=== PATIENT | male | born 1955 | race Caucasian/White ===

== ENCOUNTER 2019-04-16 15:34 | Emergency (ER) | payer BC, SELFPAY ==
[2019-04-16 17:12] VITALS: BP 158/103; PULSE 65; RESP 18; TEMP 36.6; O2SAT 98; BMI 27.1
[2019-04-16 18:05] LABS: Basophils # 0.1 10^3/uL (0.0-0.1); Basophils % 0.3 %; Eosinophils % 0.1 %; Hematocrit 46.2 % (42.0-52.0); Hemoglobin 14.7 g/dL (11.7-16.6); Lymphocytes # 0.9 10^3/uL (0.8-4.8); Lymphocytes % 6.2 %; Mean Corpuscular HGB Conc 31.8 g/dL (30.0-36.0); Mean Corpuscular Hemoglobin 27.2 pg (28.0-34.0); Mean Corpuscular Volume 85.6 fL (80-94); Mean Platelet Volume 9.4 fL (7.4-10.4); Monocytes # 0.8 10^3/uL (0.2-0.9); Monocytes % 5.2 %; Neutrophils # 13.1 10^3/uL (1.8-7.7); Neutrophils % 87.9 %; Nucleated Red Blood Cells % 0 %; Platelet Count 421 10^3/cmm (130-400); Red Cell Distribution Width 12.3 % (12.1-15.1); White Blood Count 14.9 10^3/uL (4.0-10.0)
--- NOTE | 2019-04-16 18:08 | W.ED.ABDPA2 ---
Documented by User: JULIUS Hodgson 04/17/19 03:01 HPI - Abdominal Pain General: Chief Complaint: Abdominal Pain Stated Complaint: Abd pain Time Seen by Provider: 04/16/19 17:53 History of Present Illness: HPI narrative: Patient is a 63-year-old male comes into the ED with left flank pain. The pain started today and he had trouble urinating as well. He has vomited 4 times from the pain. He states the pain started up higher on the left side of his back and has progressed down his left flank. He is taken hydrocodone for pain and said that that did not help. Denies any Fevers, chest pain, shortness of breath, other abdominal pain, diarrhea, constipation, blood in the stool or upper respiratory symptoms. Review of Systems General: Reports: 10 or more systems reviewed and unremarkable except in HPI and below PFSH ED PFSH: Statuses (acute, chronic, etc) shown below reflect problem list status as previously entered and may not be historically accurate Social History Smoking and tobacco status: never smoked Physical Exam Narrative: EXAM NARRATIVE: Upon entering the room the patient was pacing back and forth and uncomfortable because of the flank pain on the left side. Const: COMMON NORMALS: oriented x3 HENMT: COMMON NORMALS: normocephalic HEAD & SCALP: normocephalic MOUTH: oral and palatal mucosa normal THROAT: posterior oropharynx normal and uvula midline Neck/C-Spine: COMMON NORMALS: supple GENERAL: Yes normal visual inspection Resp: COMMON NORMALS: normal respiratory effort, no retractions, no use of accessory muscles and clear to auscultation bilaterally AUSCULTATION: clear to auscultation bilaterally Cardio: COMMON NORMALS: regular rate, regular rhythm, S1 normal heart sound, S2 normal heart sound, no gallops, no clicks, no murmurs and peripheral pulses 2+ throughout RATE: regular rate RHYTHM: regular rhythm HEART SOUNDS: S1 normal and S2 normal PERIPHERAL PULSES: pulses 2+ throughout GI: COMMON NORMALS: normal to inspection, nondistended, normoactive bowel sounds, soft to palpation, non-tender and no masses PALPATION: Yes soft : BLADDER/KIDNEY EXAM: Yes CVA tenderness (Mild) Back/Pelvis: GENERAL BACK: Yes CVA tenderness (Mild) CVA tenderness: left Neuro: COMMON NORMALS: oriented x3 GAIT: Yes normal gait Skin: COMMON NORMALS: no rashes or lesions noted GENERAL SKIN EXAM: no rashes or lesions noted Course Vital Signs: Vital signs: Vital Signs Temperature 97.8 F 04/16/19 17:12 Pulse Rate 98 04/16/19 20:40 Respiratory Rate 18 04/16/19 20:40 Blood Pressure 136/74 04/16/19 20:40 Pulse Oximetry 98 04/16/19 20:40 MDM - Abdominal Pain Lab Data: Labs: Lab Results 04/16/19 04/16/19 04/16/19 Range/Units 17:35 17:40 17:40 WBC 14.9 H (4.0-10.0) 10^3/ uL RBC 5.40 H (4.1-5.3) 10^6/u L Hgb 14.7 (11.7-16.6) g/dL Hct 46.2 (42.0-52.0) % MCV 85.6 (80-94) fL MCH 27.2 L (28.0-34.0) pg MCHC 31.8 (30.0-36.0) g/dL RDW 12.3 (12.1-15.1) % Plt Count 421 H (130-400) 10^3/c mm MPV 9.4 (7.4-10.4) fL Neut % (Auto) 87.9 % Lymph % (Auto) 6.2 % Morrill % (Auto) 5.2 % Eos % (Auto) 0.1 % Baso % (Auto) 0.3 % Neut # (Auto) 13.1 H (1.8-7.7) 10^3/u L Lymph # (Auto) 0.9 (0.8-4.8) 10^3/u L Morrill # (Auto) 0.8 (0.2-0.9) 10^3/u L Eos # (Auto) 0.0 (0.0-0.8) 10^3/u L Baso # (Auto) 0.1 (0.0-0.1) 10^3/u L Nucleated RBC % (a uto) 0 % Nucleated RBCs # 0.0 /100WBC PT 13.60 H (10.5-13.3) SECO NDS INR 1.01 (0.8-1.2) APTT 29.4 (23.9-36.7) SECO NDS Sodium (136-145) mmol/L Potassium (3.5-5.1) mmol/L Chloride (98-107) mmol/L Carbon Dioxide (22-29) mmol/L Anion Gap (5-19) BUN (8-23) mg/dL Creatinine (0.7-1.2) mg/dL GFR Calculation (90-130) mL/min Glucose (74-106) mg/dL Calcium (8.8-10.2) mg/Dl Total Bilirubin (0.15-1.2) mg/dL AST (0-40) U/L ALT (0-41) U/L Alkaline Phosphata se (40-130) IU/L Total Protein (6.6-8.7) g/dL Albumin (3.5-5.2) g/dL Globulin (1.3-4.6) g/dL Urine Color Yellow (Yellow) Urine Appearance Clear (CLEAR) Urine pH 5 (5-7) Ur Specific Gravit y 1.025 (1.005-1.030) Urine Protein Neg (Negative) Urine Glucose (UA) Norm (Normal) Urine Ketones Negative (Negative) Urine Occult Blood 2+ H (Negative) Urine Nitrate Negative (Negative) Urine Bilirubin Neg (NEGATIVE) Urine Urobilinogen Norm (Negative) mg/dL Ur Leukocyte Tracey ase Negative (Negative) Urine RBC 15-25 H (0-2) /hpf Urine WBC None (0-5) /hpf Ur Squamous Epith Cells None (0-5) Urine Bacteria 1+ H (NONE) Urine Mucus 1+ 01/15/20 Range/Units 17:40 WBC (4.0-10.0) 10^3/ uL RBC (4.1-5.3) 10^6/u L Hgb (11.7-16.6) g/dL Hct (42.0-52.0) % MCV (80-94) fL MCH (28.0-34.0) pg MCHC (30.0-36.0) g/dL RDW (12.1-15.1) % Plt Count (130-400) 10^3/c mm MPV (7.4-10.4) fL Neut % (Auto) % Lymph % (Auto) % Morrill % (Auto) % Eos % (Auto) % Baso % (Auto) % Neut # (Auto) (1.8-7.7) 10^3/u L Lymph # (Auto) (0.8-4.8) 10^3/u L Morrill # (Auto) (0.2-0.9) 10^3/u L Eos # (Auto) (0.0-0.8) 10^3/u L Baso # (Auto) (0.0-0.1) 10^3/u L Nucleated RBC % (a uto) % Nucleated RBCs # /100WBC PT (10.5-13.3) SECO NDS INR (0.8-1.2) APTT (23.9-36.7) SECO NDS Sodium 142 (136-145) mmol/L Potassium 4.2 (3.5-5.1) mmol/L Chloride 104 (98-107) mmol/L Carbon Dioxide 26 (22-29) mmol/L Anion Gap 16.2 (5-19) BUN 20 (8-23) mg/dL Creatinine 1.7 H (0.7-1.2) mg/dL GFR Calculation 41.0 L (90-130) mL/min Glucose 131 H (74-106) mg/dL Calcium 10.3 H (8.8-10.2) mg/Dl Total Bilirubin 0.4 (0.15-1.2) mg/dL AST 19 (0-40) U/L ALT 17 (0-41) U/L Alkaline Phosphata se 80 (40-130) IU/L Total Protein 8.0 (6.6-8.7) g/dL Albumin 4.5 (3.5-5.2) g/dL Globulin 3.5 (1.3-4.6) g/dL Urine Color (Yellow) Urine Appearance (CLEAR) Urine pH (5-7) Ur Specific Gravit y (1.005-1.030) Urine Protein (Negative) Urine Glucose (UA) (Normal) Urine Ketones (Negative) Urine Occult Blood (Negative) Urine Nitrate (Negative) Urine Bilirubin (NEGATIVE) Urine Urobilinogen (Negative) mg/dL Ur Leukocyte Tracey ase (Negative) Urine RBC (0-2) /hpf Urine WBC (0-5) /hpf Ur Squamous Epith Cells (0-5) Urine Bacteria (NONE) Urine Mucus Imaging Data ^: CT Abd/Pel: Attestation: I personally reviewed and interpreted this imaging study as follows: Radiologist's impression: [address] [place] [address] CT Scan Report Signed Patient: Carlos Willoughby Unit #: [id number] : 1955 Age/Sex: 63 / M ADM Date: 04/16/19 Loc: ER Room/Bed: Attending Dr: Ordering Provider/Ordering MD: Meir Argueta Date of Service: 04/16/19 Procedure(s): CT kidney stone 97459 Accession Number(s): [id number] Report Number: [id number] PROCEDURE INFORMATION: Exam: CT Abdomen And Pelvis Without Contrast Exam date and time: 04/16/2019 6:14 PM Age: 63 years old Clinical indication: Abdominal pain; Prior surgery; Surgery type: Colon resection; Additional info: Left flank pain TECHNIQUE: Imaging protocol: Computed tomography of the abdomen and pelvis without contrast. Total DLP: 1383.8 mGy-cm Radiation optimization: All CT scans at this facility use at least one of these dose optimization techniques: automated exposure control; mA and/or kV adjustment per patient size (includes targeted exams where dose is matched to clinical indication); or iterative reconstruction. COMPARISON: CT abdomen pelvis wo con [id number] 03/11/2018 11:32 AM FINDINGS: Lungs: Calcified granulomas are noted in the lung bases. Mediastinum: A small hiatal hernia is present. Liver: Unremarkable.No mass. Gallbladder and bile ducts: Normal. No calcified stones. No ductal dilation. Pancreas: Normal. No ductal dilation. Spleen: Normal. No splenomegaly. Adrenals: Normal. No mass. Kidneys and ureters: There is moderate left hydronephrosis. There is left perinephric fat stranding. There is dilatation of the left ureter which can be followed to a 3 mm calculus distal left ureter image 155. The right kidney is normal. There is punctate nonobstructive left nephrolithiasis. Stomach and bowel: Postoperative changes in the distal colon are noted. There is mild wall thickening in the descending and sigmoid colon concerning for mild colitis. Appendix: A normal appendix is identified. Intraperitoneal space: There is a focus of extraluminal inflammation with central fat density in the left lower quadrant image 123. Vasculature: The aorta demonstrates mild atherosclerotic calcification. Lymph nodes: Unremarkable.No enlarged lymph nodes. Bladder: There is nonspecific bladder wall thickening. This may be related to incomplete distention. Reproductive: The prostate demonstrates nonspecific parenchymal calcifications. Bones/joints: Unremarkable. No acute fracture. Soft tissues: Small bilateral fat filled inguinal hernias are noted. There is a fat-containing umbilical hernia. CT/CT kidney stone 26735 IMPRESSION: 1. Moderate left hydronephrosis with a 3 mm calculus distal left ureter. 2. Postoperative changes in the distal colon are noted. There is mild wall thickening in the descending and sigmoid colon concerning for mild colitis. 3. Epiploic appendigitis of the left lower quadrant without evidence of colonic perforation or abscess. Radiation Dose CTDIVOL = (mGy): DLP = 1383.8 (mGy-cm) Dictated By: Martha Sharma Signed By: Martha Sharma Signed Date/Time: 04/16/191853 DD/ 51 Discharge Plan Discharge Patient Disposition: Home, Self-Care Clinical Impression: Kidney stone on left side Condition: Stable Prescriptions: New Flomax 0.4 mg capsule 0.4 mg PO DAILY Qty: 10 RF: 0 No Action meloxicam 15 mg Tablet 15 mg PO DAILY RF: 0 lisinopril 20 mg tablet 20 mg PO DAILY RF: 0 hydrocodone-acetaminophen 7.5-325 mg tablet 1 tab PO Q4H PRN (Reason: Pain) RF: 0 fluticasone propionate 50 mcg/actuation spray,suspension 1 spray INTRANASAL DAILY RF: 0 Discharge Orders: Discharge Order (Routine); Ordered 04/16/19 Ordered By: Meir Argueta Referrals: Yaneth Khoury, [employer] [Primary Care Provider] - Discharge Diet: Regular Discharge Activity: Increase activity as tolerated Activity Restrictions/Additional Instructions: I'm putting you in for urology referral. The [facility] urology office should be contacting you in the next couple days for an appointment. Strain your urine to catch stone and bring it to urology appointment. Drink plenty of fluids and take the prescribed tamsulosin daily. Take Aleve or ibuprofen as needed for pain. Discharge Date/Time: 04/16/19 20:40 Coding Level of Care Code ED Toe Puller for Krystag Fwd Documented by User: Ashley May 04/19/19 19:22 HPI - Abdominal Pain General: Chief Complaint: Abdominal Pain Stated Complaint: Abd pain Time Seen by Provider: 04/16/19 17:53 PFSH ED PFSH: Statuses (acute, chronic, etc) shown below reflect problem list status as previously entered and may not be historically accurate Social History Smoking and tobacco status: never smoked Course Vital Signs: Vital signs: Vital Signs Temperature 97.8 F 04/16/19 17:12 Pulse Rate 98 04/16/19 20:40 Respiratory Rate 18 04/16/19 20:40 Blood Pressure 136/74 04/16/19 20:40 Pulse Oximetry 98 04/16/19 20:40 MDM - Abdominal Pain MDM Narrative: Medical decision making narrative: Addendum 04/19/19 -I was reviewing this patient's chart and had concerns about the possible colitis and his elevated white count and creatinine. I have contacted him by phone and he states he is feeling no better but he is also not feeling any worse. I have encouraged him and he agrees to return to the ER for recheck. Lab Data: Labs: Lab Results 04/16/19 04/16/19 04/16/19 Range/Units 17:35 17:40 17:40 WBC 14.9 H (4.0-10.0) 10^3/ uL RBC 5.40 H (4.1-5.3) 10^6/u L Hgb 14.7 (11.7-16.6) g/dL Hct 46.2 (42.0-52.0) % MCV 85.6 (80-94) fL MCH 27.2 L (28.0-34.0) pg MCHC 31.8 (30.0-36.0) g/dL RDW 12.3 (12.1-15.1) % Plt Count 421 H (130-400) 10^3/c mm MPV 9.4 (7.4-10.4) fL Neut % (Auto) 87.9 % Lymph % (Auto) 6.2 % Morrill % (Auto) 5.2 % Eos % (Auto) 0.1 % Baso % (Auto) 0.3 % Neut # (Auto) 13.1 H (1.8-7.7) 10^3/u L Lymph # (Auto) 0.9 (0.8-4.8) 10^3/u L Morrill # (Auto) 0.8 (0.2-0.9) 10^3/u L Eos # (Auto) 0.0 (0.0-0.8) 10^3/u L Baso # (Auto) 0.1 (0.0-0.1) 10^3/u L Nucleated RBC % (a uto) 0 % Nucleated RBCs # 0.0 /100WBC PT 13.60 H (10.5-13.3) SECO NDS INR 1.01 (0.8-1.2) APTT 29.4 (23.9-36.7) SECO NDS Sodium (136-145) mmol/L Potassium (3.5-5.1) mmol/L Chloride (98-107) mmol/L Carbon Dioxide (22-29) mmol/L Anion Gap (5-19) BUN (8-23) mg/dL Creatinine (0.7-1.2) mg/dL GFR Calculation (90-130) mL/min Glucose (74-106) mg/dL Calcium (8.8-10.2) mg/Dl Total Bilirubin (0.15-1.2) mg/dL AST (0-40) U/L ALT (0-41) U/L Alkaline Phosphata se (40-130) IU/L Total Protein (6.6-8.7) g/dL Albumin (3.5-5.2) g/dL Globulin (1.3-4.6) g/dL Urine Color Yellow (Yellow) Urine Appearance Clear (CLEAR) Urine pH 5 (5-7) Ur Specific Gravit y 1.025 (1.005-1.030) Urine Protein Neg (Negative) Urine Glucose (UA) Norm (Normal) Urine Ketones Negative (Negative) Urine Occult Blood 2+ H (Negative) Urine Nitrate Negative (Negative) Urine Bilirubin Neg (NEGATIVE) Urine Urobilinogen Norm (Negative) mg/dL Ur Leukocyte Tracey ase Negative (Negative) Urine RBC 15-25 H (0-2) /hpf Urine WBC None (0-5) /hpf Ur Squamous Epith Cells None (0-5) Urine Bacteria 1+ H (NONE) Urine Mucus 1+ 01/15/20 Range/Units 17:40 WBC (4.0-10.0) 10^3/ uL RBC (4.1-5.3) 10^6/u L Hgb (11.7-16.6) g/dL Hct (42.0-52.0) % MCV (80-94) fL MCH (28.0-34.0) pg MCHC (30.0-36.0) g/dL RDW (12.1-15.1) % Plt Count (130-400) 10^3/c mm MPV (7.4-10.4) fL Neut % (Auto) % Lymph % (Auto) % Morrill % (Auto) % Eos % (Auto) % Baso % (Auto) % Neut # (Auto) (1.8-7.7) 10^3/u L Lymph # (Auto) (0.8-4.8) 10^3/u L Morrill # (Auto) (0.2-0.9) 10^3/u L Eos # (Auto) (0.0-0.8) 10^3/u L Baso # (Auto) (0.0-0.1) 10^3/u L Nucleated RBC % (a uto) % Nucleated RBCs # /100WBC PT (10.5-13.3) SECO NDS INR (0.8-1.2) APTT (23.9-36.7) SECO NDS Sodium 142 (136-145) mmol/L Potassium 4.2 (3.5-5.1) mmol/L Chloride 104 (98-107) mmol/L Carbon Dioxide 26 (22-29) mmol/L Anion Gap 16.2 (5-19) BUN 20 (8-23) mg/dL Creatinine 1.7 H (0.7-1.2) mg/dL GFR Calculation 41.0 L (90-130) mL/min Glucose 131 H (74-106) mg/dL Calcium 10.3 H (8.8-10.2) mg/Dl Total Bilirubin 0.4 (0.15-1.2) mg/dL AST 19 (0-40) U/L ALT 17 (0-41) U/L Alkaline Phosphata se 80 (40-130) IU/L Total Protein 8.0 (6.6-8.7) g/dL Albumin 4.5 (3.5-5.2) g/dL Globulin 3.5 (1.3-4.6) g/dL Urine Color (Yellow) Urine Appearance (CLEAR) Urine pH (5-7) Ur Specific Gravit y (1.005-1.030) Urine Protein (Negative) Urine Glucose (UA) (Normal) Urine Ketones (Negative) Urine Occult Blood (Negative) Urine Nitrate (Negative) Urine Bilirubin (NEGATIVE) Urine Urobilinogen (Negative) mg/dL Ur Leukocyte Tracey ase (Negative) Urine RBC (0-2) /hpf Urine WBC (0-5) /hpf Ur Squamous Epith Cells (0-5) Urine Bacteria (NONE) Urine Mucus Discharge Plan Discharge Patient Disposition: Home, Self-Care Clinical Impression: Kidney stone on left side Condition: Stable Prescriptions: New Flomax 0.4 mg capsule 0.4 mg PO DAILY Qty: 10 RF: 0 No Action meloxicam 15 mg Tablet 15 mg PO DAILY RF: 0 lisinopril 20 mg tablet 20 mg PO DAILY RF: 0 hydrocodone-acetaminophen 7.5-325 mg tablet 1 tab PO Q4H PRN (Reason: Pain) RF: 0 fluticasone propionate 50 mcg/actuation spray,suspension 1 spray INTRANASAL DAILY RF: 0 Discharge Orders: Discharge Order (Routine); Ordered 04/16/19 Ordered By: Meir Arugeta Referrals: Yaneth Khoury, [employer] [Primary Care Provider] - Discharge Diet: Regular Discharge Activity: Increase activity as tolerated Activity Restrictions/Additional Instructions: I'm putting you in for urology referral. The [facility] urology office should be contacting you in the next couple days for an appointment. Strain your urine to catch stone and bring it to urology appointment. Drink plenty of fluids and take the prescribed tamsulosin daily. Take Aleve or ibuprofen as needed for pain. Discharge Date/Time: 04/16/19 20:40 Coding Level of Care Code ED Toe Puller for Jignesh Zhong
[2019-04-16 18:09] LABS: INR 1.01 (0.8-1.2)
[2019-04-16 18:10] LABS: Partial Thromboplastin Time 29.4 SECONDS (23.9-36.7)
[2019-04-16 18:27] LABS: Alanine Aminotransferase 17 U/L (0-41); Albumin Level 4.5 g/dL (3.5-5.2); Alkaline Phosphatase 80 IU/L (40-130); Anion Gap 16.2 (5-19); Aspartate Amino Transferase 19 U/L (0-40); Blood Urea Nitrogen 20 mg/dL (8-23); Calcium 10.3 mg/Dl (8.8-10.2); Carbon Dioxide 26 mmol/L (22-29); Chloride 104 mmol/L (98-107); Globulin 3.5 g/dL (1.3-4.6); Glucose 131 mg/dL (74-106); Potassium 4.2 mmol/L (3.5-5.1); Sodium 142 mmol/L (136-145); Total Bilirubin 0.4 mg/dL (0.15-1.2)
[2019-04-16] MEDS: tamsulosin 0.4 mg Capsule PO (18:29)
[2019-04-16] MEDS: ketorolac 30 mg/mL INJ IVP (18:29)
[2019-04-16] MEDS: sodium chloride 0.9% 1,000 ML 999 ML IV (18:29)
[2019-04-16] MEDS: ondansetron 2 mg/ML SDV 2 mL 4 MG IVP (18:29)
--- NOTE | 2019-04-16 18:32 | PC.NURSE ---
pt transported to CT
[2019-04-16 18:38] LABS: Add Urine Microscopic? YES; Bilirubin Urine Neg (NEGATIVE); Blood Urine 2+ (Negative); Glucose Urine UA Norm (Normal); Ketones Urine Negative (Negative); Leukocyte Esterase Urine Negative (Negative); Nitrate Urine Negative (Negative); Protein Urine Neg (Negative); Specific Gravity, Urine 1.025 (1.005-1.030); Urine Appearance Clear (CLEAR); Urine Color Yellow (Yellow); Urobilinogen Urine Norm (Negative); pH Urine 5 (5-7)
[2019-04-16 18:45] LABS: Bacteria Urine 1+; Mucus Urine 1+; RBC Urine 15-25 /hpf (0-2)
[2019-04-16 18:46] LABS: Add Urine Culture? Yes
--- NOTE | 2019-04-16 19:52 | PC.NURSE ---
Patient stated that his pain was returning and was wondering what the update was on his results. Informed both charge nurse and physician assistant director of security and nurse.
[2019-04-16 20:12] VITALS: RESP 18
[2019-04-16] MEDS: morphine 4 mg/mL SDV 1 mL IVP (20:12)
[2019-04-16 20:40] VITALS: BP 136/74; PULSE 98; RESP 18; O2SAT 98
--- NOTE | 2019-04-18 14:27 | DCPLANNER ---
batch and furnace manager had message to schedule a follow up appointment for patient with the office of Dr. Nevarez. batch and furnace manager called the office of Dr. Nevarez, spoke with Samira, gave clinic patients information. A follow up appointment is scheduled for Sunday, April 21, 2019 patient is to be at hospital at 7:00 for an X-Ray, then go to Dr. Nava office for appointment. Clinic will call patient with appointment information.
--- NOTE | 2019-04-23 15:13 | DCPLANNER ---
Patient did attend appointment scheduled for 04.21.19 with Roque Rueda.
== END 2019-04-16 20:40 | disposition home or self-care (01) ==
PROVIDERS: Emergency Medicine; Emergency Provider Physician Assistant; Family Provider Nurse Practitioner; PCP Nurse Practitioner
DX: N20.0 Calculus of kidney (principal)
CPT/HCPCS: 36415; 74176; 80053; 81003; 85025; 85610; 85730; 87086; 96360; 96374; 99282; A9270; J1885; J2270; J2405; J7030

== ENCOUNTER 2019-04-19 20:06 | Observation (INO) | payer BC, SELFPAY ==
[2019-04-19] VITALS (7 sets, daily range): BP systolic 139; BP diastolic 78–92; PULSE 72–90; RESP 18–20; TEMP 36.6; O2SAT 96; BMI 27.1
--- NOTE | 2019-04-19 20:13 | ED_ITS ---
Entered by Jenifer Cortez, acting as scribe for YadiraAshley Sherry HPI - Abdominal Pain General: Chief Complaint: General Medical Stated Complaint: WAS TOLD TO COME BY DOC/UNSURE WHY Time Seen by Provider: 04/19/19 20:10 Source: patient and family Mode of arrival: ambulatory Limitations: no limitations History of Present Illness: HPI narrative: 63 yo m came to the er per Doctor's request. Pt has been having some lower left abd pain. Pt states that his pain is in his left side radiating to his back. Pt has not had a fever. Pt states that he had a bowel resection in september. Patient states that he is been taking Motrin at home and that is the only thing that helps. It does not completely relieve his pain. He is also been taking old hydrocodone's but states this only helps minimally as well. He is not been wanting to eat or drink but is not had any fever or vomiting. MD elicited complaint: abdominal pain Severity: mild Relieving factors: nothing Associated Symptoms: Denies chills, coffee ground emesis, constipation, GI cramping, diarrhea, dysuria, fever(s), hematochezia, hematuria, hematemesis, melena, nausea, syncope and vomiting Review of Systems General: Reports: other (negative unless marked) Const: Denies: fever, chills, body aches, fatigue, malaise or diaphoresis Eyes: Denies: change in vision or blurry vision ENMT: Denies: throat pain, painful swallowing, hoarseness, ear pain, ear discharge, Change in hearing or nasal discharge Card: Denies: chest pain, palpitations, irregular heart rhythm, syncope, pre- syncope, shortness of breath on exertion or shortness of breath when lying down Resp: Denies: shortness of breath, productive cough, non-productive cough, wheezing, coughing up blood or chest congestion GI: Denies: abdominal pain, nausea, vomiting, vomiting blood, coffee grounds in vomit, diarrhea, constipation, cramping, blood in stool or black tarry stool : Reports: flank pain; Denies: difficulty urinating, painful urination, urinary frequency, urinary urgency, decreased urine ouput, urinary incontinence or blood in urine Musc: Denies: neck pain, back pain, extremity pain, extremity swelling, joint pain, joint swelling, joint warmth or joint stiffness Skin/Breast: Denies: rash, skin tenderness or yellow skin Neuro: Denies: headache, numbness in extremities, weakness in extremities, changes in sensation, lack of coordination, difficulty walking, dizziness, vertigo or confusion Endo: Denies: excessive thirst, tired all the time, cold intolerance, excessive sweating, flushing or hot flashes Luis/Lymph: Denies: easy bruising, easy bleeding, petechiae or enlarged lymph nodes All/Imm: Denies: hives, throat swelling, tongue swelling, facial swelling or acute wheezing PFSH ED PFSH: Statuses (acute, chronic, etc) shown below reflect problem list status as previously entered and may not be historically accurate Social History Smoking and tobacco status: never smoked Physical Exam Const: COMMON NORMALS: no apparent distress, oriented x3, no limitations, healthy appearing and well nourished EXAM LIMITATIONS: no altered mental status GENERAL APPEARANCE: cooperative, well kempt and well developed ORIENTATION/CONSCIOUSNESS: Yes awake HENMT: COMMON NORMALS: normocephalic, head/scalp atraumatic, hearing grossly normal bilaterally, external ears normal, EAC's normal, external nose normal and moist oral mucous membranes HEAD & SCALP: normal to inspection, normocephalic and atraumatic FACE & SINUS: normal facial exam and face symmetric NOSE: external nose normal and nares normal EXTERNAL EAR: Yes external ears normal EXTERNAL AUDITORY CANAL: EAC's normal MOUTH: oral and palatal mucosa normal and tongue normal Eye: COMMON NORMALS: PERRL, EOMs intact bilaterally, conjunctivae normal and no scleral icterus GENERAL EYE: normal appearance of both eyes and normal light reflex CONJUNCTIVA: Yes conjunctivae normal SCLERA: sclerae normal CORNEA: Yes corneas normal PUPIL: Yes PERRL DIRECT OPHTHALMOSCOPY: Yes normal light reflex Neck/C-Spine: COMMON NORMALS: full ROM, no lymphadenopathy, supple, no meningeal signs and no JVD GENERAL: Yes normal visual inspection and Yes trachea midline CERVICAL SPINE: Yes cervical ROM normal Chest: COMMONS NORMALS: inspection of chest normal and palpation of chest normal Resp: COMMON NORMALS: normal respiratory effort, no retractions, no use of accessory muscles and clear to auscultation bilaterally EFFORT & INSPECTION: Yes able to speak in complete sentences AUSCULTATION: clear to auscultation bilaterally Cardio: COMMON NORMALS: no JVD, regular rate, regular rhythm, S1 normal heart sound, S2 normal heart sound, no gallops, no clicks, no murmurs and no rub JUGULAR VENOUS DISTENTION: no JVD RATE: regular rate RHYTHM: regular rhythm HEART SOUNDS: S1 normal and S2 normal GI: COMMON NORMALS: soft to palpation, non-tender, no hepatosplenomegaly and no masses INSPECTION: Yes normal to inspection PALPATION: Yes soft and Yes no hepatosplenomegaly : COMMON NORMALS: Yes no CVA tenderness BLADDER/KIDNEY EXAM: Yes no CVA tenderness Back/Pelvis: COMMON NORMALS: no CVA tenderness, thoracic and lumbar spine normal to inspection, no thoracic nor lumbar tenderness and thoraco-lumbar ROM normal Extremity: COMMON NORMALS: normal to inspection, full ROM, normal capillary refill, no joint enlargement, no clubbing, cyanosis or edema and no calf tenderness Neuro: COMMON NORMALS: oriented x3, CN's II-XII intact bilaterally, moves all extremities, no focal motor deficits and no sensory deficits noted MENINGEAL SIGNS: Yes no meningeal signs Psych: COMMON NORMALS: mental status grossly normal, thought process normal, cooperative, affect normal, speech normal and activity/motor behavior normal APPEARANCE: Yes well kempt SPEECH: Yes normal speech THOUGHT PROCESS: normal thought process Skin: COMMON NORMALS: no rashes or lesions noted, skin turgor normal, no jaundice, no petechiae and no mottling GENERAL SKIN EXAM: no rashes or lesions noted and turgor normal Course Vital Signs: Vital signs: Vital Signs Temperature 97.8 F 04/19/19 20:17 Pulse Rate 72 04/19/19 20:17 Respiratory Rate 20 H 04/19/19 22:33 Blood Pressure 139/92 04/19/19 20:17 Pulse Oximetry 96 04/19/19 20:17 MDM - Abdominal Pain MDM Narrative: Medical decision making narrative: The patient has no reproducible pain to palpation although he may have some mild left CVA tenderness. His CT scan appears stable but his kidney function is worsening. I think this is likely due more so to not wanting to eat or drink then any obstruction. The patient is failing despite narcotic and NSAID medication at home. I reviewed the case in full with Dr. Nevarez and he is agreeable to watching the patient overnight but if his creatinine and his pain are controlled tomorrow he will likely go home and continue to follow as an outpatient. Lab Data: Labs: Lab Results 04/19/19 04/19/19 04/19/19 Range/Units 20:55 20:55 20:55 WBC 8.3 (4.0-10.0) 10^3/ uL RBC 4.59 (4.1-5.3) 10^6/u L Hgb 12.4 (11.7-16.6) g/dL Hct 39.1 L (42.0-52.0) % MCV 85.2 (80-94) fL MCH 27.0 L (28.0-34.0) pg MCHC 31.7 (30.0-36.0) g/dL RDW 12.0 L (12.1-15.1) % Plt Count 309 (130-400) 10^3/c mm MPV 9.3 (7.4-10.4) fL Neut % (Auto) 72.8 % Lymph % (Auto) 14.1 % Hamlin % (Auto) 10.6 % Eos % (Auto) 1.4 % Baso % (Auto) 0.7 % Neut # (Auto) 6.0 (1.8-7.7) 10^3/u L Lymph # (Auto) 1.2 (0.8-4.8) 10^3/u L Hamlin # (Auto) 0.9 (0.2-0.9) 10^3/u L Eos # (Auto) 0.1 (0.0-0.8) 10^3/u L Baso # (Auto) 0.1 (0.0-0.1) 10^3/u L Nucleated RBC % (a uto) 0 % Nucleated RBCs # 0.0 /100WBC Sodium 135 L (136-145) mmol/L Potassium 3.7 (3.5-5.1) mmol/L Chloride 99 (98-107) mmol/L Carbon Dioxide 25 (22-29) mmol/L Anion Gap 14.7 (5-19) BUN 18 (8-23) mg/dL Creatinine 2.1 H (0.7-1.2) mg/dL GFR Calculation 32.2 L (90-130) mL/min Glucose 126 H (74-106) mg/dL Lactic Acid 0.9 (0.5-2.2) mmol/L Calcium 9.5 (8.8-10.2) mg/Dl Magnesium 2.3 (1.7-2.3) mg/dL Total Bilirubin 0.7 (0.15-1.2) mg/dL AST 13 (0-40) U/L ALT 15 (0-41) U/L Alkaline Phosphata se 71 (40-130) IU/L Total Protein 6.9 (6.6-8.7) g/dL Albumin 3.5 (3.5-5.2) g/dL Globulin 3.4 (1.3-4.6) g/dL Lipase 11 L (13-60) U/L Urine Color (Yellow) Urine Appearance (CLEAR) Urine pH (5-7) Ur Specific Gravit y (1.005-1.030) Urine Protein (Negative) Urine Glucose (UA) (Normal) Urine Ketones (Negative) Urine Occult Blood (Negative) Urine Nitrate (Negative) Urine Bilirubin (NEGATIVE) Urine Urobilinogen (Negative) mg/dL Ur Leukocyte Tracey ase (Negative) Urine RBC (0-2) /hpf Urine WBC (0-5) /hpf Ur Squamous Epith Cells (0-5) Urine Bacteria (NONE) 04/19/19 Range/Units 22:24 WBC (4.0-10.0) 10^3/ uL RBC (4.1-5.3) 10^6/u L Hgb (11.7-16.6) g/dL Hct (42.0-52.0) % MCV (80-94) fL MCH (28.0-34.0) pg MCHC (30.0-36.0) g/dL RDW (12.1-15.1) % Plt Count (130-400) 10^3/c mm MPV (7.4-10.4) fL Neut % (Auto) % Lymph % (Auto) % Hamlin % (Auto) % Eos % (Auto) % Baso % (Auto) % Neut # (Auto) (1.8-7.7) 10^3/u L Lymph # (Auto) (0.8-4.8) 10^3/u L Hamlin # (Auto) (0.2-0.9) 10^3/u L Eos # (Auto) (0.0-0.8) 10^3/u L Baso # (Auto) (0.0-0.1) 10^3/u L Nucleated RBC % (a uto) % Nucleated RBCs # /100WBC Sodium (136-145) mmol/L Potassium (3.5-5.1) mmol/L Chloride (98-107) mmol/L Carbon Dioxide (22-29) mmol/L Anion Gap (5-19) BUN (8-23) mg/dL Creatinine (0.7-1.2) mg/dL GFR Calculation (90-130) mL/min Glucose (74-106) mg/dL Lactic Acid (0.5-2.2) mmol/L Calcium (8.8-10.2) mg/Dl Magnesium (1.7-2.3) mg/dL Total Bilirubin (0.15-1.2) mg/dL AST (0-40) U/L ALT (0-41) U/L Alkaline Phosphata se (40-130) IU/L Total Protein (6.6-8.7) g/dL Albumin (3.5-5.2) g/dL Globulin (1.3-4.6) g/dL Lipase (13-60) U/L Urine Color Yellow (Yellow) Urine Appearance Clear (CLEAR) Urine pH 5 (5-7) Ur Specific Gravit y 1.010 (1.005-1.030) Urine Protein Neg (Negative) Urine Glucose (UA) Norm (Normal) Urine Ketones Negative (Negative) Urine Occult Blood 2+ H (Negative) Urine Nitrate Negative (Negative) Urine Bilirubin Neg (NEGATIVE) Urine Urobilinogen Norm (Negative) mg/dL Ur Leukocyte Tracey ase Negative (Negative) Urine RBC Rare (0-2) /hpf Urine WBC 0-4 H (0-5) /hpf Ur Squamous Epith Cells Rare (0-5) Urine Bacteria Trace (NONE) Imaging Data ^: CT Abd/Pel: Radiologist's impression: [address] [address] [address] Scan Report Signed Patient: Carlos Willoughby Ianpravin #: [id number] : 7Acct#:[id number] Age/Sex: 63 / MADM Date: 04/19/19 Loc: ERRoom/Bed: Attending Dr: Ordering Provider/Ordering MD: Ashley May DO Date of Service: 04/19/19 Procedure(s): CT kidney stone 67761 Accession Number(s): [id number] Report Number: [id number] PROCEDURE INFORMATION: Exam: CT Abdomen And Pelvis Without Contrast Exam date and time: 04/19/2019 8:46 PM Age: 63 years old Clinical indication: Abdominal pain; Localized; Left; Prior surgery; Surgery date: 6+ months; Surgery type: Colon; Additional info: Flank/abdominal pain TECHNIQUE: Imaging protocol: Computed tomography of the abdomen and pelvis without contrast. Total DLP: 1470.59 mGy-cm Radiation optimization: All CT scans at this facility use at least one of these dose optimization techniques: automated exposure control; mA and/or kV adjustment per patient size (includes targeted exams where dose is matched to clinical indication); or iterative reconstruction. COMPARISON: CT kidney stone [id number] 04/16/2019 6:49 PM FINDINGS: There is some atelectasis within the lung bases. There are mild degenerative changes of the spine. There is no liver mass. There is no intrahepatic biliary dilatation. No gallstones are seen within the gallbladder. The pancreas is unremarkable. The spleen is unremarkable. There is no adrenal mass. The right kidney again demonstrates some mild perinephric fat stranding. No mass, calculi or hydronephrosis is seen on the right. There continues to be moderate hydronephrosis of the left kidney with multiple small calculi. There is perinephric fat stranding. The left ureter is dilated with periureteric fat stranding. There is a 2 mm calculus in the distal ureter just above the bladder. This appears unchanged in position. No additional ureteral calculi are seen. The bladder is unremarkable. The aorta is normal in caliber. The IVC is normal in caliber. There is no retroperitoneal adenopathy. There is no mesenteric adenopathy. The stomach is unremarkable. The small bowel loops in the upper abdomen are nondistended with no bowel wall thickening. Feces is seen throughout the colon. There is no thickening of the wall of the ascending, transverse or descending colons. Again noted is the fat density the mass with fat stranding adjacent to the sigmoid colon which may represent epiploic appendagitis. It appears unchanged. Within the pelvis: A normal appendix is seen within the right lower quadrant. The prostate gland and seminal vesicles are normal. There is no free fluid within the pelvis. There is no inguinal adenopathy. There is no pelvic adenopathy. There are postop changes of the rectosigmoid colon. CT/CT kidney stone [id number] IMPRESSION: 1. Overall, no significant change since the previous exam. 2. Again noted is moderate hydronephrosis of the left kidney with a 2 mm calculus in the distal ureter. consult should be considered. 3. Fat density mass with surrounding fat stranding about the sigmoid colon which may represent epiploic appendagitis. It appears unchanged. Radiation Dose CTDIVOL = (mGy): DLP = 1470.59 (mGy-cm) Dictated By:Jose Angel Payan MD Signed By:Jose Angel Payan MDSigned Date/Time:04/19/192128 DD/ 27 Discharge Plan Discharge Patient Disposition: Placed in Observation Clinical Impression: Kidney stone on left side, Acute kidney injury Condition: Stable Prescriptions: No Action meloxicam 15 mg Tablet 15 mg PO DAILY RF: 0 lisinopril 20 mg tablet 20 mg PO DAILY RF: 0 hydrocodone-acetaminophen 7.5-325 mg tablet 1 tab PO Q4H PRN (Reason: Pain) RF: 0 fluticasone propionate 50 mcg/actuation spray,suspension 1 spray INTRANASAL DAILY RF: 0 tamsulosin [Flomax] 0.4 mg capsule 0.4 mg PO DAILY Qty: 10 RF: 0 Referrals: Yaneth Khoury, [employer] [Primary Care Provider] - Coding Level of Care Code ED Supervisor [employer] for Chg Fwd Exam Problem Focused The documentation recorded by the Diego tilley Stephanie Lyn, accurately reflects the service I personally performed and the decisions made by Yadira martell Eli N Apr 19, 2019 20:06
--- NOTE | 2019-04-19 20:40 | CTR_ITS ---
PROCEDURE INFORMATION: Exam: CT Abdomen And Pelvis Without Contrast Exam date and time: 04/19/2019 8:46 PM Age: 63 years old Clinical indication: Abdominal pain; Localized; Left; Prior surgery; Surgery date: 6+ months; Surgery type: Colon; Additional info: Flank/abdominal pain TECHNIQUE: Imaging protocol: Computed tomography of the abdomen and pelvis without contrast. Total DLP: 1470.59 mGy-cm Radiation optimization: All CT scans at this facility use at least one of these dose optimization techniques: automated exposure control; mA and/or kV adjustment per patient size (includes targeted exams where dose is matched to clinical indication); or iterative reconstruction. COMPARISON: CT kidney stone [id number] 04/16/2019 6:49 PM FINDINGS: There is some atelectasis within the lung bases. There are mild degenerative changes of the spine. There is no liver mass. There is no intrahepatic biliary dilatation. No gallstones are seen within the gallbladder. The pancreas is unremarkable. The spleen is unremarkable. There is no adrenal mass. The right kidney again demonstrates some mild perinephric fat stranding. No mass, calculi or hydronephrosis is seen on the right. There continues to be moderate hydronephrosis of the left kidney with multiple small calculi. There is perinephric fat stranding. The left ureter is dilated with periureteric fat stranding. There is a 2 mm calculus in the distal ureter just above the bladder. This appears unchanged in position. No additional ureteral calculi are seen. The bladder is unremarkable. The aorta is normal in caliber. The IVC is normal in caliber. There is no retroperitoneal adenopathy. There is no mesenteric adenopathy. The stomach is unremarkable. The small bowel loops in the upper abdomen are nondistended with no bowel wall thickening. Feces is seen throughout the colon. There is no thickening of the wall of the ascending, transverse or descending colons. Again noted is the fat density the mass with fat stranding adjacent to the sigmoid colon which may represent epiploic appendagitis. It appears unchanged. Within the pelvis: A normal appendix is seen within the right lower quadrant. The prostate gland and seminal vesicles are normal. There is no free fluid within the pelvis. There is no inguinal adenopathy. There is no pelvic adenopathy. There are postop changes of the rectosigmoid colon. CT/CT kidney stone [id number] IMPRESSION: 1. Overall, no significant change since the previous exam. 2. Again noted is moderate hydronephrosis of the left kidney with a 2 mm calculus in the distal ureter. consult should be considered. 3. Fat density mass with surrounding fat stranding about the sigmoid colon which may represent epiploic appendagitis. It appears unchanged. Radiation Dose CTDIVOL = (mGy): DLP = 1470.59 (mGy-cm)
[2019-04-19] MEDS: ondansetron 2 mg/ML SDV 2 mL 4 MG IVP (20:45)
[2019-04-19] MEDS: morphine 4 mg/mL SDV 1 mL IVP ×2 (20:50→22:33)
[2019-04-19] MEDS: sodium chloride 0.9% 1,000 ML 150 ML IV (20:54)
[2019-04-19 21:05] LABS: Basophils # 0.1 10^3/uL (0.0-0.1); Basophils % 0.7 %; Eosinophils # 0.1 10^3/uL (0.0-0.8); Eosinophils % 1.4 %; Hematocrit 39.1 % (42.0-52.0); Hemoglobin 12.4 g/dL (11.7-16.6); Lymphocytes # 1.2 10^3/uL (0.8-4.8); Lymphocytes % 14.1 %; Mean Corpuscular HGB Conc 31.7 g/dL (30.0-36.0); Mean Corpuscular Volume 85.2 fL (80-94); Mean Platelet Volume 9.3 fL (7.4-10.4); Monocytes # 0.9 10^3/uL (0.2-0.9); Monocytes % 10.6 %; Neutrophils % 72.8 %; Nucleated Red Blood Cells % 0 %; Platelet Count 309 10^3/cmm (130-400); Red Blood Count 4.59 10^6/uL (4.1-5.3); White Blood Count 8.3 10^3/uL (4.0-10.0)
--- NOTE | 2019-04-19 21:27 | XRR_ITS ---
PROCEDURE INFORMATION: Exam: XR Abdomen, 1 View Exam date and time: 04/19/2019 10:09 PM Age: 63 years old Clinical indication: Abdominal pain; Flank; Left; Additional info: Ureteral stone TECHNIQUE: Imaging protocol: XR of the abdomen. Views: Frontal supine view of the abdomen. 1 View. COMPARISON: CT kidney stone [id number] 04/19/2019 9:24 PM FINDINGS: Gastrointestinal tract: Prominent stool, without bowel dilatation. Organs: CT detected left renal and ureteral calculi poorly visualized on radiography. Bones/joints: Mild degenerative change. XR/XR KUB portable [id number] IMPRESSION: 1. Prominent stool, without bowel dilatation. 2. CT detected left renal and ureteral calculi poorly visualized on radiography.
[2019-04-19 21:36] LABS: Lactic Sepsis W/Reflex 0.9 mmol/L (0.5-2.2)
[2019-04-19] MEDS: ciprofloxacin 500 mg Tablet PO (21:42)
[2019-04-19] MEDS: metroNIDAZOLE 500 MG Tablet PO (21:42)
[2019-04-19 21:51] LABS: Alanine Aminotransferase 15 U/L (0-41); Albumin Level 3.5 g/dL (3.5-5.2); Alkaline Phosphatase 71 IU/L (40-130); Anion Gap 14.7 (5-19); Aspartate Amino Transferase 13 U/L (0-40); Blood Urea Nitrogen 18 mg/dL (8-23); Calcium 9.5 mg/Dl (8.8-10.2); Carbon Dioxide 25 mmol/L (22-29); Chloride 99 mmol/L (98-107); Globulin 3.4 g/dL (1.3-4.6); Glomerular Filtration Rate 32.2 mL/min (90-130); Glucose 126 mg/dL (74-106); Lipase 11 U/L (13-60); Magnesium 2.3 mg/dL (1.7-2.3); Potassium 3.7 mmol/L (3.5-5.1); Sodium 135 mmol/L (136-145); Total Bilirubin 0.7 mg/dL (0.15-1.2); Total Protein 6.9 g/dL (6.6-8.7)
[2019-04-19 22:48] LABS: Add Urine Culture? No; Bacteria Urine TRACE; Bilirubin Urine Neg (NEGATIVE); Blood Urine 2+ (Negative); Glucose Urine UA Norm (Normal); Ketones Urine Negative (Negative); Leukocyte Esterase Urine Negative (Negative); Nitrate Urine Negative (Negative); Protein Urine Neg (Negative); RBC Urine RARE /hpf (0-2); Squamous Epithelial Cell Urine RARE (0-5); Urine Appearance Clear (CLEAR); Urine Color Yellow (Yellow); Urobilinogen Urine Norm (Negative); WBC Urine 0-4 /hpf (0-5); pH Urine 5 (5-7)
[2019-04-19] MEDS: HYDROmorphone 1 mg/mL INJ 1 mL IVP (23:38)
[2019-04-20] VITALS (21 sets, daily range): BP systolic 126–152; BP diastolic 64–95; PULSE 73–96; RESP 16–22; TEMP 36.6–37.3; O2SAT 92–99
--- NOTE | 2019-04-20 | SCC_ITS ---
PROCEDURE DONE: An 8 Macedonian cone-tipped catheter was intubated into the left ureteral orifice for left retrograde ureteropyelogram: 24.1 seconds of fluoroscopic guidance, for a cumulative dose of 2.35 mGy, was provided to Dr. Nevarez by the radiology department. C-arm images of the abdomen were saved for the patient's permanent record. [facility]
[2019-04-20] MEDS: morphine 4 mg/mL SDV 1 mL IVP (00:06)
[2019-04-20] MEDS: sodium chloride 0.9% 1,000 ML 175 ML IV ×2 (00:42→06:06)
[2019-04-20] MEDS: morphine 4 mg/mL SDV 1 mL 2 MG IVP ×4 (01:34→07:38)
--- NOTE | 2019-04-20 04:32 | PM.HP ---
Providers/Chief Complaint Admitting Physician: Salvador Nevarez MD Primary Care Provider: Yaneth Khoury Chief Complaint: Refractory symptomatic LEFT distal stone History of Present Illness Carlos Willoughby is a 63 year old male admitted to [facility] through ED for abrupt and acute onset of refractory, severe LEFT renal colicky pain associated with an obstructing small distal ureteral stone initially diagnosed on CT 04/16/19 in the absence of infection. Associated symptoms included NAUSEA, MALAISE, FREQUENCY. Creatinine was 1.7. Treated conservatively with expectation of spontaneous passage. Urology appointment scheduled for 04/21/19. Presented back to ED 04/19 for persistent symptoms similar to above but with worsening of pain despite pain meds. CT confirmed previous findings. Cr increased to 2.4. Is on Meloxicam Admitted for further eval and treatment after marginal and not durable relief of symptoms with aggressive treatment in ED. Since being hospitalized he has had continued intermittent severe pain. We reviewed his options which would include continued inpatient or outpatient conservative management versus intervention endoscopically and after detailed discussion of benefits risk potential complications alternatives etc. both he and his are in agreement to proceed this morning with cystoscopy, LEFT: Retrograde, ureteroscopy, laser, stent. We also discussed the possibility that he might actually have a distal ureteral narrowing accounting for the difficulty in passing a small stone. If that is the case it increases the chances that the access to the stone will be limited requiring a staged procedure of stenting for passive dilation to be followed by definitive treatment of the stone at a later date. Both he and his expressed good understanding. Review of Systems Const: Reports: malaise; Denies: fever or chills Eyes: Denies: change in vision or blurry vision ENMT: Denies: throat pain or change in hearing Card: Denies: chest pain, palpitations or edema Resp: Denies: shortness of breath, non-productive cough or wheezing GI: Reports: abdominal pain and nausea; Denies: diarrhea or change in stool character : Reports: flank pain and other (Some chronic BPH type symptoms with no previous improvement on TAMSULOSIN.); Denies: painful urination Musc: Denies: extremity pain or joint swelling Skin/Breast: Denies: rash, itching or redness Neuro: Denies: weakness in extremities, slurred speech or seizure-like activity Psych: Reports: anxiety (Related to the pain); Denies: mood swings Endo: Denies: cold intolerance or excessive sweating Luis/Lymph: Denies: easy bruising, easy bleeding or enlarged lymph nodes Medications/Allergies Allergies Allergy/AdvReac Type Severity Reaction Status Date / Time bacitracin [From Cortisporin] Allergy ALGY-Hives Verified 04/20/19 01:19 carbamazepine [From Tegretol] Allergy ALGY-Hives Verified 04/20/19 01:19 hydrocortisone Allergy ALGY-Hives Verified 04/20/19 01:19 [From Cortisporin] neomycin [From Cortisporin] Allergy ALGY-Hives Verified 04/20/19 01:19 oxycodone Allergy ALGY-Hives Verified 04/20/19 01:19 polymyxin B Allergy ALGY-Hives Verified 04/20/19 01:19 [From Cortisporin] PFSH Acute PFSH: Statuses (acute, chronic, etc) shown below reflect problem list status as previously entered and may not be historically accurate Medical History Diverticulitis (Acute) Hyperlipidemia (Acute) Hypertension (Acute) Urolithiasis (Acute) Surgical History Cataract (Acute) History of colonoscopy (Acute) Family History Other Diabetes Hypertension Social History Smoking and tobacco status: never smoked Household members: spouse Vitals/I&O/Wt Last Vital Signs Temp 99.1 F 04/20/19 04:00 Pulse 88 04/20/19 04:00 Resp 18 04/20/19 04:00 BP 126/69 04/20/19 04:00 Pulse Ox 92 04/20/19 04:00 04/19/19 04/19/19 04/20/19 14:59 22:59 06:59 Intake Total 267.5 / 267.5 1140.833 / 1408.333 Output Total 300 / 300 Balance 267.5 / 267.5 840.833 / 1108.333 Weight last 48 hrs Weight 195 lb Physical Exam Const: COMMON NORMALS: oriented x3 GENERAL APPEARANCE: cooperative and anxious (Secondary to the discomfort); not comfortable HENMT: COMMON NORMALS: normocephalic, head/scalp atraumatic and hearing grossly normal bilaterally Eye: COMMON NORMALS: conjunctivae normal and no scleral icterus Neck/C-Spine: COMMON NORMALS: full ROM and no lymphadenopathy Lymph: LYMPHATIC: no lymphadenopathy noted and no lymphedema noted Resp: COMMON NORMALS: normal respiratory effort and clear to auscultation bilaterally EFFORT & INSPECTION: No tachypneic and No respiratory distress Cardio: COMMON NORMALS: regular rhythm RATE: tachycardic GI: COMMON NORMALS: no masses PALPATION: Yes tender Details: LLQ and other (Left CVA) : COMMON NORMALS: Yes external exam normal, Yes testes normal and Yes scrotum normal BLADDER/KIDNEY EXAM: No catheter in place PENIS: normal penis MEATUS: meatus normal Back/Pelvis: GENERAL BACK: Yes CVA tenderness Extremity: COMMON NORMALS: normal capillary refill and no clubbing, cyanosis or edema Neuro: COMMON NORMALS: oriented x3 SENSORIUM/ORIENTATION: Yes alert SPEECH: speech normal Psych: COMMON NORMALS: mental status grossly normal, thought process normal and cooperative APPEARANCE: Yes well kempt ATTITUDE: Yes engaged Skin: GENERAL SKIN EXAM: no rashes or lesions noted and turgor normal Data : 04/20/19 05:56 04/20/19 05:56 A&P Assessment and plan (1) Ureteral calculus, left: Refractory symptoms despite aggressive parenteral narcotics. Ultimately chose to proceed with intervention. See HPI for full detail Status: Acute Code(s): N20.1 - Calculus of ureter (2) Acute kidney injury: Improvement after hydration overnight. Status: Acute Code(s): N17.9 - Acute kidney failure, unspecified (3) Hypertension: Status: Acute Code(s): I10 - Essential (primary) hypertension (4) Kidney stone on left side: Status: Acute Code(s): N20.0 - Calculus of kidney Attestations Medical Necessity Statement*: Attempt at outpatient management failed due to refractory pain nausea vomiting and dehydration with acute kidney injury. Because of the above he has elected to proceed with attempt at definitive therapy via endoscopy. 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
[2019-04-20 06:25] LABS: Basophils % 0.3 %; Eosinophils % 0.4 %; Hematocrit 36.1 % (42.0-52.0); Hemoglobin 11.5 g/dL (11.7-16.6); Lymphocytes # 0.7 10^3/uL (0.8-4.8); Lymphocytes % 7.7 %; Mean Corpuscular HGB Conc 31.9 g/dL (30.0-36.0); Mean Corpuscular Hemoglobin 26.9 pg (28.0-34.0); Mean Corpuscular Volume 84.3 fL (80-94); Mean Platelet Volume 9.5 fL (7.4-10.4); Monocytes % 10.1 %; Neutrophils # 7.8 10^3/uL (1.8-7.7); Neutrophils % 81.2 %; Nucleated Red Blood Cells % 0 %; Platelet Count 289 10^3/cmm (130-400); Red Blood Count 4.28 10^6/uL (4.1-5.3); Red Cell Distribution Width 12.1 % (12.1-15.1); White Blood Count 9.6 10^3/uL (4.0-10.0)
[2019-04-20 06:55] LABS: Anion Gap 15.1 (5-19); Blood Urea Nitrogen 15 mg/dL (8-23); Carbon Dioxide 22 mmol/L (22-29); Chloride 104 mmol/L (98-107); Glomerular Filtration Rate 36.1 mL/min (90-130); Glucose 111 mg/dL (74-106); Potassium 4.1 mmol/L (3.5-5.1); Sodium 137 mmol/L (136-145)
[2019-04-20 09:17] LABS: Glucose Point of Care 89 mg/dL (70-110)
--- NOTE | 2019-04-20 09:20 | P.ANES_ITS ---
Pre-Anesthetic Assessment Pre-Anesthetic Assessment: Height/Weight: Height 1.8 m Weight 88.451 kg Temp Pulse Resp BP Pulse Ox 98.6 F 82 17 133/83 94 04/20/19 07:29 04/20/19 07:29 04/20/19 07:38 04/20/19 07:29 04/20/19 07:29 Preop Diagnosis: left ureteral stne Proposed Procedure: Operation Date: 04/20/19 09:45 Proposed Procedures p Cystoscopy left retrograde ureteroscopy laser and stent(Left) - Salvador Nevarez MD Last intake: Intake Last Liquid Date 04/20/19 Last Liquid Time 04:00 Last Solid Date 04/19/19 Last Solid Time 17:00 Exam: Pre-Anes Outpt Exam: alert, oriented x 3, clear to auscultation bilaterally and regular rate & rhythm Airway: Submandibular: WNL Cervical ROM: WNL MP: 1 CV/HEM: CV/HEM: HTN Comments: rx'd 10 years stress test neg : : Chronic renal Insufficiency Comments: stones GI: Comments: s/p colon resection Musc/skel: Musc/skel: Lower Back Pain Anesthetic Plan: ASA status: II Anesthesia: General Meds/Allergies Current Medications: Current Medications Generic Name Dose Route Start Last Admin Trade Name Freq PRN Reason Stop Dose Admin Sodium Chloride 1,000 mls @ 150 m ls/hr 04/19/19 20:30 04/20/19 04:58 Sodium Chloride 0.9% IV Not Given .[id number] YANDEL Sodium Chloride 1,000 mls @ 175 m ls/hr 04/20/19 00:25 04/20/19 06:06 Sodium Chloride 0.9% IV 175 mls/hr .[id number] YANDEL Administration Morphine Sulfate 2 mg 04/20/19 01:26 04/20/19 07:38 Morphine IVP 2 mg Q1H PRN Administration SEVERE PAIN PFSH Anesthesia PFSH: Medical History Diverticulitis (Acute) Hyperlipidemia (Acute) Hypertension (Acute) Urolithiasis (Acute) Surgical History Cataract (Acute) History of colonoscopy (Acute) Family History Other Diabetes Hypertension Social History Smoking and tobacco status: never smoked Household members: spouse Data Anesthesia CBC & Chem 7: 04/20/19 05:56 04/20/19 05:56 Other Labs: Laboratory Results - last 48 hr 04/19/19 04/19/19 04/19/19 20:55 20:55 20:55 WBC 8.3 RBC 4.59 Hgb 12.4 Hct 39.1 L MCV 85.2 MCH 27.0 L MCHC 31.7 RDW 12.0 L Plt Count 309 MPV 9.3 Neut % (Auto) 72.8 Lymph % (Auto) 14.1 [place] % (Auto) 10.6 Eos % (Auto) 1.4 Baso % (Auto) 0.7 Neut # (Auto) 6.0 Lymph # (Auto) 1.2 [place] # (Auto) 0.9 Eos # (Auto) 0.1 Baso # (Auto) 0.1 Nucleated RBC % (auto) 0 Nucleated RBCs # 0.0 Sodium 135 L Potassium 3.7 Chloride 99 Carbon Dioxide 25 Anion Gap 14.7 BUN 18 Creatinine 2.1 H GFR Calculation 32.2 L Glucose 126 H POC Glucose Lactic Acid 0.9 Calcium 9.5 Magnesium 2.3 Total Bilirubin 0.7 AST 13 ALT 15 Alkaline Phosphatase 71 Total Protein 6.9 Albumin 3.5 Globulin 3.4 Lipase 11 L Urine Color Urine Appearance Urine pH Ur Specific [place] Urine Protein Urine Glucose (UA) Urine Ketones Urine Occult Blood Urine Nitrate Urine Bilirubin Urine Urobilinogen Ur Leukocyte Esterase Urine RBC Urine WBC Ur Squamous Epith Cells Urine Bacteria 04/19/19 04/20/19 04/20/19 22:24 05:56 05:56 WBC 9.6 RBC 4.28 Hgb 11.5 L Hct 36.1 L MCV 84.3 MCH 26.9 L MCHC 31.9 RDW 12.1 Plt Count 289 MPV 9.5 Neut % (Auto) 81.2 Lymph % (Auto) 7.7 [place] % (Auto) 10.1 Eos % (Auto) 0.4 Baso % (Auto) 0.3 Neut # (Auto) 7.8 H Lymph # (Auto) 0.7 L [place] # (Auto) 1.0 H Eos # (Auto) 0.0 Baso # (Auto) 0.0 Nucleated RBC % (auto) 0 Nucleated RBCs # 0.0 Sodium 137 Potassium 4.1 Chloride 104 Carbon Dioxide 22 Anion Gap 15.1 BUN 15 Creatinine 1.9 H GFR Calculation 36.1 L Glucose 111 H POC Glucose Lactic Acid Calcium 9.0 Magnesium Total Bilirubin AST ALT Alkaline Phosphatase Total Protein Albumin Globulin Lipase Urine Color Yellow Urine Appearance Clear Urine pH 5 Ur Specific [place] 1.010 Urine Protein Neg Urine Glucose (UA) Norm Urine Ketones Negative Urine Occult Blood 2+ H Urine Nitrate Negative Urine Bilirubin Neg Urine Urobilinogen Norm Ur Leukocyte Esterase Negative Urine RBC Rare Urine WBC 0-4 H Ur Squamous Epith Cells Rare Urine Bacteria Trace 04/20/19 09:13 WBC RBC Hgb Hct MCV MCH MCHC RDW Plt Count MPV Neut % (Auto) Lymph % (Auto) [place] % (Auto) Eos % (Auto) Baso % (Auto) Neut # (Auto) Lymph # (Auto) [place] # (Auto) Eos # (Auto) Baso # (Auto) Nucleated RBC % (auto) Nucleated RBCs # Sodium Potassium Chloride Carbon Dioxide Anion Gap BUN Creatinine GFR Calculation Glucose POC Glucose 89 Lactic Acid Calcium Magnesium Total Bilirubin AST ALT Alkaline Phosphatase Total Protein Albumin Globulin Lipase Urine Color Urine Appearance Urine pH Ur Specific [place] Urine Protein Urine Glucose (UA) Urine Ketones Urine Occult Blood Urine Nitrate Urine Bilirubin Urine Urobilinogen Ur Leukocyte Esterase Urine RBC Urine WBC Ur Squamous Epith Cells Urine Bacteria Cardiac Studies: No Data to Display
--- NOTE | 2019-04-20 09:21 | PM.OP ---
Operative Report Date of procedure: 04/20/19 Pre-op Diagnosis: Refractory left distal ureteral stone Post-op diagnosis: same Post-op Findings: Same Pathology: Stone sent for analysis Surgeon: Salvador Nevarez Anesthesia: General Estimated blood loss: None Urine output: Not measured Condition: stable Disposition: PACU Brief History: 63-year-old white male with refractory left renal colic secondary to a small left distal ureteral stone originally treated conservatively with expectation of spontaneous passage. Failed to do so and continued to have severe symptoms of nausea vomiting pain etc. No evidence of infection. Did have some transient bump in creatinine with improvement noted on hydration but not normal. Procedure: After urgent evaluation examination and obtaining of informed consent he was taken to the operating suite on 1919 where general anesthesia was administered without difficulty after appropriate timeout was performed, SCDs confirmed to be functioning, preoperative antibiotics administered, beta-maritza protocol confirmed. Prepped and draped in usual sterile fashion in dorsolithotomy position pain careful attention to avoiding pressure points. 21 Rwandan cystoscope with 30 degree lens was introduced into the urethral meatus and advanced into the bladder videoscopy. Bladder was systematically examined. No stone was seen. An 8 R[place]andan cone-tipped catheter was intubated into the left ureteral orifice for left retrograde ureteropyelogram: Demonstrating some narrowing of the distal left ureter with a filling defect consistent with a stone seen on CT scan in the expected position. The ureter proximal to the stone was dilated. No other filling defects were identified. In order to pass the guidewire and open-ended ureteral catheter was required within the wire was easily advanced beyond the stone up into the upper pole calyx. The distal ureter was then dilated with a 15 Rwandan 4 cm balloon with no waist at 6 tre of pressure. The wire was secured to the drapes as a safety wire and then a offset semirigid ureteroscope was advanced next to the wire up the ureter and the stone was encountered in the more dilated distal ureter grasped and grasping forceps and removed without difficulty. Scope was repassed and the distal ureter assessed and there was quite a bit of inflammatory change where the stone had been lodged. For that reason it was decided to leave the stent indwelling. Cystoscope was then backloaded over the guidewire and a 6 Rwandan by 22?32 multilength stent was advanced over the guidewire through the cystoscope into appropriate position as confirmed via fluoroscopy and cystoscopy. String was left attached to the distal aspect and it was shortened. He was awakened in the operating room and returned to recovery in stable condition PLANS: 1. Stone sent for analysis 2. Maintain stent for approximately 1 week if possible and then either withdraw it in the clinic or have him withdraw at home. 3. Can be discharged from second floor after appropriate recovery.
[2019-04-20] MEDS: sodium chloride 0.9% 1,000 ML 30 ML IV (09:23)
--- NOTE | 2019-04-20 09:27 | PC.NURSE ---
SURGERY PT TAKEN DOWN TO SURGERY AT 0915.
--- NOTE | 2019-04-20 09:29 | SUR.PREOP ---
0915 patient to ops via carlos from med surg at this time. rr even and unlabored. pwd. spouse at bedside.
--- NOTE | 2019-04-20 09:37 | SC_ITS ---
WS: [id number] INTRAOPERATIVE TECHNIQUE: 3 Spot fluoroscopic images for intraoperative purposes. FLUOROSCOPY TIME: 24.1 seconds CLINICAL INFORMATION: surgery COMPARISON: None. FINDINGS: Left double-J ureteral stent in place. Proximal and distal ends of the stent appear in appropriate po sition. No visualized ureteral calculi. SC/C-arm FL for Urology IMPRESSION: Images obtained for intraoperative purposes.
[2019-04-20] MEDS: iohexol 300 mg/mL 50 mL Btl (OR ONLY) XX (10:24)
--- NOTE | 2019-04-20 10:44 | PM.DCS ---
Discharge Providers Date of Admission: 04/19/19 23:03 Date of Discharge: 04/20/19 Attending Provider at Admission: Salvador Nevarez MD Attending Provider at Discharge: Salvador Nevarez MD Primary Care Provider: Yaneth Khoury Diagnoses at Discharge Discharge Diagnosis (1) Ureteral calculus, left: Status: Resolved (2) Acute kidney injury: Status: Resolved (3) Hypertension: Status: Chronic (4) Kidney stone on left side: Status: Acute Problem details: Very small nonobstructing punctate left renal calculus identified during work-up for left distal ureteral stone April 2019. Reason for Visit Reason for Visit: Reason For Visit: Refractory symptomatic LEFT distal stone Hospital Course Hospital Course: Admitted on the night of 04/18/2019 with refractory pain related to left distal ureteral stone that was felt to have have a good chance of spontaneous passage after first evaluation 2 days prior. He continued to have significant pain and was offered the opportunity for endoscopic treatment of the stone on 04/19/2019. He agreed to proceed with that. Ureteroscopy with stone extraction was performed and a stent placed postoperatively. He did well after appropriate recovery he was discharged home. Physical Exam Const: COMMON NORMALS: no apparent distress and oriented x3 Resp: COMMON NORMALS: normal respiratory effort EFFORT & INSPECTION: No respiratory distress Cardio: COMMON NORMALS: regular rate RATE: regular rate Neuro: COMMON NORMALS: oriented x3 Psych: COMMON NORMALS: thought process normal THOUGHT PROCESS: normal thought process Discharge Data Data Completed and Pending: Completed Studies During Hospitalization Category Date Time Status CT kidney stone 7 4176 Urgent Cat Scan 04/19/19 20:40 Completed XR KUB portable 7 [id number] Stat Exams 04/19/19 21:27 Completed Pending at discharge Category Date Time Status C-arm Fluoroscopy [id number] Routine Exams 04/20/19 09:37 Ordered Pathology: Surgic al [PTH] Routine Pth 04/20/19 10:41 Ordered Labs from last 24 hours 04/19/19 04/19/19 04/19/19 22:24 20:55 20:55 WBC RBC Hgb Hct MCV MCH MCHC RDW Plt Count MPV Neut % (Auto) Lymph % (Auto) [place] % (Auto) Eos % (Auto) Baso % (Auto) Neut # (Auto) Lymph # (Auto) [place] # (Auto) Eos # (Auto) Baso # (Auto) Nucleated RBC % (a uto) Nucleated RBCs # Sodium 135 L Potassium 3.7 Chloride 99 Carbon Dioxide 25 Anion Gap 14.7 BUN 18 Creatinine 2.1 H GFR Calculation 32.2 L Glucose 126 H POC Glucose Lactic Acid 0.9 Calcium 9.5 Magnesium 2.3 Total Bilirubin 0.7 AST 13 ALT 15 Alkaline Phosphata se 71 Total Protein 6.9 Albumin 3.5 Globulin 3.4 Lipase 11 L Urine Color Yellow Urine Appearance Clear Urine pH 5 Ur Specific Gravit y 1.010 Urine Protein Neg Urine Glucose (UA) Norm Urine Ketones Negative Urine Occult Blood 2+ H Urine Nitrate Negative Urine Bilirubin Neg Urine Urobilinogen Norm Ur Leukocyte Tracey ase Negative Urine RBC Rare Urine WBC 0-4 H Ur Squamous Epith Cells Rare Urine Bacteria Trace 04/19/19 20:55 WBC 8.3 RBC 4.59 Hgb 12.4 Hct 39.1 L MCV 85.2 MCH 27.0 L MCHC 31.7 RDW 12.0 L Plt Count 309 MPV 9.3 Neut % (Auto) 72.8 Lymph % (Auto) 14.1 [place] % (Auto) 10.6 Eos % (Auto) 1.4 Baso % (Auto) 0.7 Neut # (Auto) 6.0 Lymph # (Auto) 1.2 [place] # (Auto) 0.9 Eos # (Auto) 0.1 Baso # (Auto) 0.1 Nucleated RBC % (a uto) 0 Nucleated RBCs # 0.0 Sodium Potassium Chloride Carbon Dioxide Anion Gap BUN Creatinine GFR Calculation Glucose POC Glucose Lactic Acid Calcium Magnesium Total Bilirubin AST ALT Alkaline Phosphata se Total Protein Albumin Globulin Lipase Urine Color Urine Appearance Urine pH Ur Specific [place] y Urine Protein Urine Glucose (UA) Urine Ketones Urine Occult Blood Urine Nitrate Urine Bilirubin Urine Urobilinogen Ur Leukocyte [place]acey ase Urine RBC Urine WBC Ur Squamous Epith Cells Urine Bacteria Procedures Performed: Cystoscopy, left retrograde ureteropyelogram, ureteroscopic stone extraction, ureteral stent placement (6 [place]ian by multilength 22-32 cm) Vitals: Last Vital Signs Temp 98.7 F 04/20/19 09:18 Pulse 78 04/20/19 09:18 Resp 18 04/20/19 09:18 BP 147/92 04/20/19 09:18 Pulse Ox 95 04/20/19 09:18 Discharge Plan Discharge Patient Disposition: Home, Self-Care Condition: Stable Prescriptions: Continued lisinopril 20 mg tablet 20 mg PO DAILY RF: 0 hydrocodone-acetaminophen 7.5-325 mg tablet 1 tab PO Q4H PRN (Reason: Pain) RF: 0 tamsulosin [Flomax] 0.4 mg capsule 0.4 mg PO DAILY Qty: 10 RF: 0 Discharge Orders: Discharge Order (Routine); Ordered 04/20/19 Ordered By: Salvador Nevarez Referrals: Yaneth Khoury, NATURAL RESOURCES ENGINEER-C [Primary Care Provider] - Salvador Nevarez MD [Physician] - (We will plan to leave the stent in for approximately 1 week. I can remove it in the office with the string or if he wants to remove it himself that would be fine.) Discharge Diet: Advance as tolerated Discharge Activity: Resume usual activity Discharge Attestations Time Spent in Discharge Care*: less than 30 min Quality Metrics Clinical Quality Measures During this hospital stay, did patient experience: None Coding Level of Care Code Acute Wellness Ambassador for g Fwd Exam Problem Focused Diagnoses Ureteral calculus, left N20.1 Acute kidney injury N17.9 Hypertension I10 Kidney stone on left side N20.0
--- NOTE | 2019-04-20 10:51 | SUR.PHASEI ---
1050 PATIENT TO PACU AT THIS TIME VIA GURNEY. RR EVEN AND UNLABORED. PLACED ON SIMPLE MASK AT 8L. SPO2 99%. PWD. NOTED TO BE RESTING WITH EYES CLOSED.
--- NOTE | 2019-04-20 11:24 | SUR.PHASEI ---
1111 PATIENT TO MED SURG AT THIS TIME VIA LAUREN. RR EVEN AND UNLABORED. PWD. PATIENT SPOUSE PRESENT ON ARRIVAL TO MED SURG. PATIENT ASSISTED TO BR WITH STEADY GAIT.
[2019-04-20 11:48] LABS: Glucose Point of Care 90 mg/dL (70-110)
[2019-04-20] MEDS: lisinopril 20 mg Tablet PO (12:03)
[2019-04-20] MEDS: ondansetron 2 mg/ML SDV 2 mL 4 MG IVP (12:03)
--- NOTE | 2019-04-20 13:10 | PC.CHAP ---
Pastoral Care Encounter/Spiritual Assessment Type of Contact [] Declined health care specialist visit [] Patient/Family/Request visit [] Outpatient visit [] Follow-up visit [] Physician referral [] Code/Alert [] Routine visit [] Staff referral [] Actively dying [] Patient sleeping [] Family support [] [] Out of room [] Palliative care [] [] Receiving care in room [] Pre-surgical visit [] Trauma [] Long length of stay [] ICU visit [] Other: Relational/Emotional Strength [] Patient feels connected with others/family/visitors/staff [] Distress [] Loneliness/isolation [] Abandonment Spirituality of Patient [] Person of Lalita [] Attends Buddhist of their Lalita [] Believes in Prayer [] Reads Bible or Tenriism materials [] There are Spiritual issues to be addressed Research Geologist Interventions [] Prayer [] Active listening [] Non-anxious presence [] Spiritual/emotional support [] Crisis/trauma care [] Spiritual counseling [] Bereavement support [] Provided bereavement packet [] Provided Bible/devotional materials [] Provided toy/stuffed animal, coloring book to patient or family member [] Completed spiritual assessment [] Provided Communion [] Anointing/[place] [] Salvation [] Other: Impact on Illness or Injury [] Angry [] Fearful [] Anxious [] Often cries [] Exhaustion [] Unable to work [] Unable to attend scientology [] Unable to walk/stand [] Unable to read [] Unable to drive [] Unable to eat/drink [] Unable to sleep [] Unable to be with family [] Other: Summary Time spent with patient Follow-up, not in room.
--- NOTE | 2019-04-20 13:40 | PC.NURSE ---
urine Pt had 100ml of med pink urine.
--- NOTE | 2019-04-20 19:57 | PC.NURSE ---
amin Pt went home with amin cath per Dr Nevarez orders. Pt was taught how to change night bag to leg bag. DC instructions given pt and .
[2019-04-26 00:56] LABS: Stone Source LEFT URETERAL STONE
== END 2019-04-20 16:45 | disposition home or self-care (01) ==
LOC: ER 23:06 → MEDSURG 04-20 04:59
PROVIDERS: Admitting Provider Urology; Emergency Provider Emergency Medicine; Family Provider Nurse Practitioner; PCP Nurse Practitioner; Visit Provider Urology
PROC: 0TJB8ZZ Inspection of Bladder, Via Natural or Artificial Opening Endoscopic (ICD-10-PCS; CPT 52000; principal; 2019-04-20 09:25)
PROC: 0TJ98ZZ Inspection of Ureter, Via Natural or Artificial Opening Endoscopic (ICD-10-PCS; CPT 52351; 2019-04-20 09:25)
PROC: (CPT 74420; 2019-04-20 09:25)
PROC: (CPT 52332; 2019-04-20 09:25)
DX: N20.2 Calculus of kidney with calculus of ureter (principal); N17.9 Acute kidney failure, unspecified; I10 Essential (primary) hypertension; E78.5 Hyperlipidemia, unspecified; Z82.49 Family history of ischemic heart disease and other diseases of the circulatory system; Z83.3 Family history of diabetes mellitus; Z79.891 Long term (current) use of opiate analgesic
CPT/HCPCS: 52332; 52351; 12345; 36415; 36416; 51702; 74018; 74176; 76000; 80048; 80053; 81001; 82365; 82962; 83605; 83690; 83735; 85025; 88300; 96360; 96361; 96374; 96375; 96376; 99282; 99285; C1725; C2625; G0378; J1170; J2270; J2405; J2704; J2710; J3010; J3490; J7030

== ENCOUNTER 2019-06-09 07:32 | Outpatient (RCR) | payer BC, SELFPAY | END 2019-07-01 23:59 | disposition home or self-care (01) | LOC: SOT 07:32 | PROVIDERS: Family Provider Nurse Practitioner; PCP Family Medicine; Referring Provider Orthopaedic Surgery Hand Surgery; Visit Provider Orthopaedic Surgery Hand Surgery | DX: M18.12 Unilateral primary osteoarthritis of first carpometacarpal joint, left hand (principal) | CPT/HCPCS: 97022; 97035; 97110; 97112; 97140; 97165; L3809 ==

== ENCOUNTER 2019-07-02 06:00 | Outpatient (RCR) | payer BC, SELFPAY | END 2019-07-09 23:00 | disposition home or self-care (01) | LOC: SOT 06:00 | PROVIDERS: Family Provider Nurse Practitioner; PCP Family Medicine; Referring Provider Orthopaedic Surgery Hand Surgery; Visit Provider Orthopaedic Surgery Hand Surgery | DX: M18.12 Unilateral primary osteoarthritis of first carpometacarpal joint, left hand (principal) | CPT/HCPCS: 97110 ==

== ENCOUNTER 2019-07-31 08:25 | Outpatient (CLI) | payer BC, SELFPAY ==
--- NOTE | 2019-07-31 08:30 | XR_ITS ---
WS: [id number] ABDOMEN: SUPINE FILM HISTORY: RENAL STONE COMPARISON: 11/18/2019 Normal bowel gas pattern. Mild bilateral hip joint arthritis. Right kidney: No renal or ureteral stone identified. Left kidney: No renal or ureteral stone identified. XR/XR KUB [id number] IMPRESSION: No LEFT ureteral calcifications identified radiographically.
== END 2019-07-31 08:26 | disposition home or self-care (01) ==
LOC: RAD 08:29
PROVIDERS: Family Provider Nurse Practitioner; PCP Family Medicine; Visit Provider Urology
DX: N20.0 Calculus of kidney (principal)
CPT/HCPCS: 74018; 81001

== ENCOUNTER 2020-04-28 08:37 | Outpatient (CLI) | payer BC, SELFPAY ==
--- NOTE | 2020-04-28 08:30 | XR_ITS ---
WS: [id number] Exam: XR KUB [id number] Date/Time of Exam: 04/28/2020 8:52 AM Reason For Exam: RETAINED URETERAL STENT Comparison 07/31/2019. No bowel obstruction or free air. Visualized organ margins are intact. No abnormal calcifications see n over the region of the kidneys. No radiopaque foreign bodies are identified. Surgical sutures visua lized in the mid pelvis. Nonspecific left pelvic calcifications noted. XR/XR KUB [id number] IMPRESSION: 1. No acute abdominal finding. 2. Nonspecific left pelvic calcifications noted.
== END 2020-04-28 08:38 | disposition home or self-care (01) ==
LOC: RAD 08:43
PROVIDERS: PCP Family Medicine; Visit Provider Urology
DX: Z96.0 Presence of urogenital implants (principal); N20.0 Calculus of kidney
CPT/HCPCS: 74018; 81003

== ENCOUNTER → 2021-01-25 13:03 | Outpatient (BNVA) | payer BC, SELFPAY | PROVIDERS: PCP Family Medicine; Referring Provider Family Medicine; Visit Provider Podiatrist Foot & Ankle Surgery | DX: M79.673 Pain in unspecified foot (principal) | CPT/HCPCS: 73630 ==

== ENCOUNTER → 2021-02-17 08:49 | Outpatient (BNVA) | payer BC, SELFPAY | PROVIDERS: PCP Family Medicine; Visit Provider Internal Medicine Rheumatology | DX: M15.9 Polyosteoarthritis, unspecified (principal); R76.8 Other specified abnormal immunological findings in serum; R53.83 Other fatigue | CPT/HCPCS: 99204 ==

== ENCOUNTER 2021-02-17 10:56 | Outpatient (CLI) | payer BC, SELFPAY ==
--- NOTE | 2021-02-17 11:00 | XR_ITS ---
WS: [id number] Exam: XR hand LT min 3V* [id number] Date/Time of Exam: 02/17/2021 11:01 AM Reason For Exam: M19.90 - Unspecified osteoarthritis, unspecified site No acute fracture or dislocation. The greater multangular is surgically absent. There are mild to mod erate degenerative changes in the IP joints. Degenerative change at the CMC joint of the thumb. There is a cable fixation of the proximal first and second metacarpals. No soft tissue foreign bodies are seen. XR/XR hand LT min 3V* [id number] IMPRESSION: 1. No fracture or dislocation. 2. Degenerative changes and postoperative changes as noted above.
--- NOTE | 2021-02-17 11:00 | XR_ITS ---
WS: [id number] Exam: XR hand RT min 3V* [id number] Date/Time of Exam: 02/17/2021 11:01 AM Reason For Exam: M19.90 - Unspecified osteoarthritis, unspecified site There are [id number] degenerative changes in the IP joints. No fracture or dislocation. No soft tissue foreign bodies are seen. Moderately advanced DJD at the CMC joint of the thumb. XR/XR hand RT min 3V* [id number] IMPRESSION: 1. Degenerative changes of the hand as detailed above. 2. No acute fracture or dislocation.
== END 2021-02-17 10:57 | disposition home or self-care (01) ==
LOC: RAD 10:58
PROVIDERS: PCP Family Medicine; Visit Provider Internal Medicine Rheumatology
DX: M19.90 Unspecified osteoarthritis, unspecified site (principal)
CPT/HCPCS: 73130

== ENCOUNTER 2021-04-26 08:57 | Outpatient (CLI) | payer BC, SELFPAY ==
--- NOTE | 2021-04-26 09:00 | XR_ITS ---
WS: [id number] KUB, AP view, 04/26/2021 Clinical Data: KIDNEY STONE ON LEFT SIDE Comparison: KUB, 04/28/2020. Findings: No abnormal intraabdominal masses or calcifications are seen. There is no dilatated small bowel or ev idence of obstruction. There is a moderate amount of fecal material throughout the colon. XR/XR KUB [id number] Impression: Negative KUB.
== END 2021-04-26 08:58 | disposition home or self-care (01) ==
LOC: RAD 08:58
PROVIDERS: PCP Family Medicine; Visit Provider Urology
DX: N20.0 Calculus of kidney (principal)
CPT/HCPCS: 74018; 81003; G0103

== ENCOUNTER 2021-07-05 06:00 | Outpatient (RCR) | payer BC, SELFPAY | END 2021-07-30 23:59 | disposition home or self-care (01) | LOC: TPT 06:00 | PROVIDERS: PCP Family Medicine; Referring Provider Podiatrist Foot & Ankle Surgery; Visit Provider Podiatrist Foot & Ankle Surgery | DX: M76.62 Achilles tendinitis, left leg (principal) | CPT/HCPCS: 97110; 97162 ==

== ENCOUNTER 2021-07-31 | Outpatient (RCR) | payer BC, SELFPAY | END 2021-08-04 23:59 | disposition home or self-care (01) | LOC: TPT | PROVIDERS: PCP Family Medicine; Referring Provider Podiatrist Foot & Ankle Surgery; Visit Provider Podiatrist Foot & Ankle Surgery | DX: M76.62 Achilles tendinitis, left leg (principal) | CPT/HCPCS: 97110 ==

== ENCOUNTER → 2021-10-10 09:06 | Outpatient (BNVA) | payer MEDICARE, BC, SELFPAY | PROVIDERS: PCP Family Medicine; Visit Provider Podiatrist Foot & Ankle Surgery | DX: Z09 Encounter for follow-up examination after completed treatment for conditions other than malignant neoplasm (principal); M76.62 Achilles tendinitis, left leg | CPT/HCPCS: 99213 ==

== ENCOUNTER 2021-10-14 16:50 | Outpatient (CLI) | payer MEDICARE, BC, SELFPAY ==
[2021-10-14 17:11] LABS: Basophils # 0.1 10^3/uL (0.0-0.1); Basophils % 0.7 %; Eosinophils # 0.2 10^3/uL (0.0-0.8); Eosinophils % 2.1 %; Hematocrit 43.7 % (42.0-52.0); Hemoglobin 14.1 g/dL (11.7-16.6); Lymphocytes # 1.7 10^3/uL (0.8-4.8); Lymphocytes % 22.6 %; Mean Corpuscular HGB Conc 32.3 g/dL (30.0-36.0); Mean Corpuscular Hemoglobin 28.2 pg (28.0-34.0); Mean Corpuscular Volume 87.4 fl (80-94); Mean Platelet Volume 9.3 fL (7.4-10.4); Monocytes # 0.6 10^3/uL (0.2-0.9); Monocytes % 7.5 %; Neutrophils # 5.12 10^3/uL (1.8-7.7); Neutrophils % 66.8 %; Nucleated Red Blood Cells % 0 %; Platelet Count 323 10^3/cmm (130-400); Red Cell Distribution Width 12.4 % (12.1-15.1); White Blood Count 7.7 10^3/uL (4.0-10.0)
[2021-10-14 17:44] LABS: Alanine Aminotransferase 25 U/L (0-41); Albumin Level 4.1 g/dL (3.5-5.2); Alkaline Phosphatase 60 IU/L (40-130); Aspartate Amino Transferase 20 U/L (0-40); Globulin 2.6 g/dL (1.3-4.6); Glomerular Filtration Rate 60.8 mL/min (90-130); Total Bilirubin 0.3 mg/dL (0.15-1.2); Total Protein 6.7 g/dL (6.6-8.7)
== END 2021-10-14 16:51 | disposition home or self-care (01) ==
LOC: LAB 16:54
PROVIDERS: PCP Family Medicine; Visit Provider Internal Medicine Rheumatology
DX: M35.9 Systemic involvement of connective tissue, unspecified (principal); Z79.899 Other long term (current) drug therapy
CPT/HCPCS: 80076; 82565; 85025; 86140

== ENCOUNTER → 2021-10-18 13:17 | Outpatient (BNVA) | payer MEDICARE, BC, SELFPAY | PROVIDERS: PCP Family Medicine; Visit Provider Internal Medicine Rheumatology | DX: M15.9 Polyosteoarthritis, unspecified (principal); R76.8 Other specified abnormal immunological findings in serum; M54.12 Radiculopathy, cervical region; Z79.899 Other long term (current) drug therapy; M35.9 Systemic involvement of connective tissue, unspecified | CPT/HCPCS: 84439; 84443; 99214 ==

== ENCOUNTER 2021-10-27 14:17 | Outpatient (CLI) | payer MEDICARE, BC, SELFPAY ==
--- NOTE | 2021-10-27 14:53 | XR_ITS ---
WS: [id number] Exam: XR cervical spine 3V* [id number] Date/Time of Exam: 10/27/2021 2:59 PM Reason For Exam: M54.12 - Radiculopathy, cervical region Comparison 09/13/2017. No fracture or dislocation. Mild facet DJD. Minimal spondylosis of C5 and 6. Normal paraspinal soft t issues. The odontoid is intact. Bilateral carotid artery calcifications noted. XR/XR cervical spine 3V* [id number] IMPRESSION: 1. Mild degenerative changes. No fracture or malalignment.
== END 2021-10-27 14:18 | disposition home or self-care (01) ==
LOC: RAD 14:20
PROVIDERS: PCP Family Medicine; Visit Provider Internal Medicine Rheumatology
DX: M54.12 Radiculopathy, cervical region (principal)
CPT/HCPCS: 72040

== ENCOUNTER 2022-01-10 11:12 | Outpatient (CLI) | payer MEDICARE, BC, SELFPAY ==
--- NOTE | 2022-01-10 11:46 | XRR_ITS ---
PROCEDURE INFORMATION: Exam: XR Left Hip Exam date and time: 01/10/2022 11:48 AM Age: 66 years old Clinical indication: Pain and injury or trauma; Fall; Blunt trauma (contusions or hematomas); Hip pain; Left hip; Injury date: 6 weeks ago TECHNIQUE: Imaging protocol: Radiologic exam of the Left hip. Views: 2 or 3 views hip with pelvis when performed. COMPARISON: CT kidney stone [id number] 04/19/2019 9:24 PM FINDINGS: Bones/joints: Unremarkable. No acute fracture. Soft tissues: Surgical sutures are seen in the central pelvis. The soft tissues are otherwise unremarkable XR/XR hip LT 2-3V wo/w pel* [id number] IMPRESSION: 1. No acute bone abnormality. 2. Surgical sutures central pelvis
--- NOTE | 2022-01-10 11:46 | XRR_ITS ---
PROCEDURE INFORMATION: Exam: XR Left Knee Exam date and time: 01/10/2022 11:48 AM Age: 66 years old Clinical indication: Pain and injury or trauma; Fall; Blunt trauma; Knee; Left; Injury date: 6 weeks ago; Additional info: Knee pain TECHNIQUE: Imaging protocol: Radiologic exam of the Left knee. Views: 3 views. COMPARISON: CR XR foot LT min 3V* [id number] 01/25/2021 1:11 PM FINDINGS: Bones/joints: Negative for acute bony abnormality Soft tissues: Normal. XR/XR knee LT 3V* [id number] IMPRESSION: No acute findings.
== END 2022-01-10 11:13 | disposition home or self-care (01) ==
PROVIDERS: PCP Family Medicine; Visit Provider Family Medicine
DX: M25.562 Pain in left knee (principal); M25.552 Pain in left hip
CPT/HCPCS: 73502; 73562

== ENCOUNTER → 2022-06-12 14:23 | Outpatient (BNVA) | payer MEDICARE, SELFPAY | PROVIDERS: PCP Family Medicine; Visit Provider Internal Medicine Rheumatology | DX: M35.9 Systemic involvement of connective tissue, unspecified (principal); Z79.899 Other long term (current) drug therapy; R06.02 Shortness of breath; M19.041 Primary osteoarthritis, right hand; M19.042 Primary osteoarthritis, left hand; R76.8 Other specified abnormal immunological findings in serum; M54.12 Radiculopathy, cervical region | CPT/HCPCS: 71046; 99214 ==

== ENCOUNTER 2022-06-20 06:00 | Outpatient (RCR) | payer MEDICARE, SELFPAY | END 2022-06-30 23:59 | disposition home or self-care (01) | LOC: TPT 06:00 | PROVIDERS: PCP Family Medicine; Visit Provider Family Medicine | DX: R42 Dizziness and giddiness (principal) | CPT/HCPCS: 97161 ==

== ENCOUNTER 2022-07-01 06:00 | Outpatient (RCR) | payer MEDICARE, SELFPAY | END 2022-07-30 23:59 | disposition home or self-care (01) | LOC: TPT 06:00 | PROVIDERS: PCP Family Medicine; Visit Provider Family Medicine | DX: R42 Dizziness and giddiness (principal) | CPT/HCPCS: 97110; 97112; 97530 ==

== ENCOUNTER 2022-07-06 10:54 | Outpatient (CLI) | payer MEDICARE, SELFPAY | END 2022-07-06 10:55 | disposition home or self-care (01) | PROVIDERS: PCP Family Medicine; Visit Provider Internal Medicine Rheumatology | DX: R06.02 Shortness of breath (principal) | CPT/HCPCS: 94010; 94726; 94729 ==

== ENCOUNTER → 2022-07-20 09:01 | Outpatient (BNVA) | payer MEDICARE, SELFPAY | PROVIDERS: PCP Family Medicine; Visit Provider Family Medicine | DX: E11.9 Type 2 diabetes mellitus without complications (principal); Z13.220 Encounter for screening for lipoid disorders; R73.09 Other abnormal glucose; Z51.81 Encounter for therapeutic drug level monitoring | CPT/HCPCS: 80053; 80061; 80076; 82565; 83036; 85025; 86140 ==

== ENCOUNTER 2022-07-31 06:00 | Outpatient (RCR) | payer MEDICARE, SELFPAY | END 2022-08-30 23:59 | disposition home or self-care (01) | LOC: TPT 06:00 | PROVIDERS: PCP Family Medicine; Visit Provider Family Medicine | DX: R42 Dizziness and giddiness (principal) | CPT/HCPCS: 97110; 97530 ==

== ENCOUNTER → 2022-09-05 14:41 | Outpatient (BNVA) | payer MEDICARE, SELFPAY | PROVIDERS: PCP Family Medicine; Visit Provider Internal Medicine Rheumatology | DX: Z79.899 Other long term (current) drug therapy (principal); M19.041 Primary osteoarthritis, right hand; M19.042 Primary osteoarthritis, left hand; M19.90 Unspecified osteoarthritis, unspecified site; R76.8 Other specified abnormal immunological findings in serum; M54.12 Radiculopathy, cervical region | CPT/HCPCS: 99214 ==

== ENCOUNTER → 2023-01-02 13:19 | Outpatient (BNVA) | payer MEDICARE, SELFPAY | PROVIDERS: PCP Family Medicine; Visit Provider Internal Medicine Rheumatology | DX: Z79.899 Other long term (current) drug therapy (principal); M19.041 Primary osteoarthritis, right hand; M19.042 Primary osteoarthritis, left hand; M19.90 Unspecified osteoarthritis, unspecified site; R76.8 Other specified abnormal immunological findings in serum; M54.12 Radiculopathy, cervical region | CPT/HCPCS: 36415; 80076; 82040; 82306; 82565; 84270; 84403; 85025; 86140; 99214 ==

== ENCOUNTER → 2023-04-04 08:31 | Outpatient (BNVA) | payer MEDICARE, SELFPAY | PROVIDERS: PCP Family Medicine; Visit Provider Family Medicine | DX: N40.1 Benign prostatic hyperplasia with lower urinary tract symptoms (principal); R79.89 Other specified abnormal findings of blood chemistry | CPT/HCPCS: 82040; 84270; 84403 ==

== ENCOUNTER → 2023-04-11 08:48 | Outpatient (BNVA) | payer MEDICARE, SELFPAY | PROVIDERS: PCP Family Medicine; Visit Provider Family Medicine | DX: I10 Essential (primary) hypertension (principal); M25.50 Pain in unspecified joint; Z79.899 Other long term (current) drug therapy; R79.89 Other specified abnormal findings of blood chemistry | CPT/HCPCS: 82040; 84270; 84403 ==

== ENCOUNTER → 2024-01-15 10:36 | Outpatient (BNVA) | payer MEDICARE, SELFPAY | PROVIDERS: PCP Family Medicine; Visit Provider Family Medicine | DX: I10 Essential (primary) hypertension (principal); Z79.899 Other long term (current) drug therapy; I65.29 Occlusion and stenosis of unspecified carotid artery; M35.9 Systemic involvement of connective tissue, unspecified | CPT/HCPCS: 80053; 80061; 83036 ==

== ENCOUNTER → 2024-04-17 11:57 | Outpatient (BNVA) | payer MEDICARE, SELFPAY | PROVIDERS: PCP Family Medicine; Visit Provider Family Medicine | DX: R73.9 Hyperglycemia, unspecified (principal); Z79.899 Other long term (current) drug therapy; I10 Essential (primary) hypertension; I65.29 Occlusion and stenosis of unspecified carotid artery; R73.09 Other abnormal glucose; R79.89 Other specified abnormal findings of blood chemistry; M19.90 Unspecified osteoarthritis, unspecified site; E55.9 Vitamin D deficiency, unspecified | CPT/HCPCS: 80053; 80061; 82040; 82607; 82652; 83036; 84270; 84403; 85025; 85651 ==

== ENCOUNTER → 2024-05-15 10:31 | Outpatient (BNVA) | payer MEDICARE, SELFPAY | PROVIDERS: PCP Family Medicine; Visit Provider Family Medicine | DX: N28.9 Disorder of kidney and ureter, unspecified (principal) | CPT/HCPCS: 80048 ==

== ENCOUNTER → 2024-11-19 11:10 | Outpatient (BNVA) | payer MEDICARE, SELFPAY | PROVIDERS: PCP Family Medicine; Visit Provider Family Medicine | DX: Z79.899 Other long term (current) drug therapy (principal); I10 Essential (primary) hypertension; R73.09 Other abnormal glucose; M35.9 Systemic involvement of connective tissue, unspecified; R76.8 Other specified abnormal immunological findings in serum; M19.90 Unspecified osteoarthritis, unspecified site; E03.9 Hypothyroidism, unspecified | CPT/HCPCS: 80053; 80061; 82607; 83036; 84443; 85025 ==

== ENCOUNTER → 2025-03-08 11:05 | Outpatient (BNVA) | payer MEDICARE, SELFPAY | PROVIDERS: PCP Family Medicine; Visit Provider Registered Nurse Neonatal Intensive Care | DX: J02.9 Acute pharyngitis, unspecified (principal) | CPT/HCPCS: 87880 ==